=== PATIENT | male | born 1995 | race Caucasian/White ===

== ENCOUNTER 2020-11-18 22:33 | Emergency (ER) | payer OTHER ==
[~2020-11-18] VITALS: Ht 190.5 cm; Wt 81.6 kg
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
[2020-11-19] MEDS ORDERED: KETOROLAC TROMETHAMINE INJ 60 MG/2 ML VIAL IM ONE
[2020-11-19] MEDS ORDERED: KETOROLAC TROMETHAMINE INJ 30 MG/ML VIAL ONE (00:06)
[2020-11-19] MEDS ORDERED: CYCL10TA9 PO (00:51)
--- NOTE | 2020-11-19 00:55 | NUR ---
Patient discharged to home in stable condition. Written and verbal after care instructions given. Patient verbalizes understanding of instruction. Pt ambulatory with a steady gait. Pt awaiting ride home
[2020-11-19 00:59] VITALS: BP 130/84
== END 2020-11-19 00:55 | disposition home or self-care (01) ==
LOC: ER 22:34
DX: R07.89 Other chest pain (principal); R51.9 Headache, unspecified; M25.531 Pain in right wrist; M25.532 Pain in left wrist; F17.200 Nicotine dependence, unspecified, uncomplicated; Z88.0 Allergy status to penicillin; Z88.1 Allergy status to other antibiotic agents; Z88.8 Allergy status to other drugs, medicaments and biological substances; Z79.899 Other long term (current) drug therapy; V49.49XA Driver injured in collision with other motor vehicles in traffic accident, initial encounter; Y93.89 Activity, other specified; Y92.413 State road as the place of occurrence of the external cause; Y99.8 Other external cause status
CPT/HCPCS: 71045; 73110 ×2; 96372; 99284; J1885